=== PATIENT | female | born 1955 | race Caucasian/White ===

== ENCOUNTER 2023-11-24 08:04 | Outpatient (REF) | payer MEDICARE, OTHER, SELFPAY ==
--- NOTE | ~2023-11-24 | CT_ITS ---
EXAMINATION: CT angio head neck CLINICAL INFORMATION: Carotid stenosis. COMPARISON: No relevant prior imaging. TECHNIQUE: Director Voice images were obtained. A CT angiogram of the head and neck was performed in the arterial phase after the intravenous administration of 70 mL Omnipaque 350. Pre and delayed postcontrast images of the head were also obtained. 3D images were processed on an independent workstation under concurrent supervision. Arterial stenoses are measured in accordance with NASCET criteria or similar method if applicable. This CT examination was performed using dose optimization techniques as appropriate, including one or more of the following: Automated exposure control, iterative reconstruction, and adjustment of technique factors (mA and/or kVp) according to patient size (this includes techniques or standardized protocols for targeted exams where dose is matched to indication/reason for exam). Fleischner Society criteria for the followup of incidental pulmonary nodules was implemented if appropriate. 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 Echeverria-white matter differentiation is otherwise preserved and there is no evidence of an acute territorial infarct. No acute hemorrhage frontal extra-axial collection. Postcontrast images reveal no abnormal mass or enhancement. No intracranial mass effect or hydrocephalus. The calvarium and skull base are intact. Mastoid air cells and middle ear cavities are well aerated. No active paranasal sinus disease. CT angiogram neck: Irregular partially calcified atheromatous plaque involves the aortic arch apex. Origins of the major aortic branches are patent. There is exuberant and eccentric predominantly lipid laden atheromatous plaque involving the medial wall of the right carotid bifurcation best visualized on axial image 361 of 582 series 15 resulting in 50% stenosis of the right internal carotid artery at its origin. 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 Cervical segments of the vertebral arteries are patent. No stenosis of the left extracranial internal carotid artery. CT angiogram head: Scattered atheromatous calcification involves the cavernous segments of both internal carotid arteries. Intracranial internal carotids are otherwise patent. Intradural vertebral artery segments and basilar artery are patent. Anterior, middle, and posterior cerebral artery complexes are normal. No intracranial large vessel occlusion. No identifiable aneurysm or high flow vascular lesion. Other: Soft tissues of the neck including the thyroid gland are normal. Grossly no pathologically enlarged cervical lymph nodes. There is centrilobular emphysema and pleural parenchymal scarring visualized at the 2 views of both lungs. CT/CT angio head neck IMPRESSION: There is exuberant and eccentric predominantly lipid laden atheromatous plaque involving the medial wall of the right carotid bifurcation resulting in 50% stenosis of the right internal carotid artery at its origin. 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 Otherwise no stenosis of the cervical carotid or vertebral arteries. No intracranial large vessel occlusion. 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 No evidence of acute territorial infarct or hemorrhage. No abnormal intracranial mass or enhancement. Electronically signed by: Bhupinder Seth MD 11/24/2023 02:10 PM EDT
[2023-11-24] MEDS: iohexoL 350 MG/ML 100 ML INFUS..BTL 70 ML IV (11:40)
[2023-11-25 14:04] LABS: Creatinine POC 1.1 mg/dL (0.5-1.4); GFR POC 50
== END 2023-11-24 08:05 | disposition home or self-care (01) ==
LOC: HO.CT 08:04
PROVIDERS: PCP Internal Medicine; Visit Provider Surgery
DX: I65.21 Occlusion and stenosis of right carotid artery (principal); Z98.890 Other specified postprocedural states
CPT/HCPCS: 70496; 70498; 82565; Q9967